=== PATIENT | male | born 1950 | race Hispanic/Latino ===

== ENCOUNTER 2024-12-07 22:59 | Emergency (ER) | payer MEDICARE ==
[~2024-12-07] VITALS: Ht 198.1 cm; Wt 99.3 kg
[2024-12-07 23:01] VITALS: BP 187/96; PULSE 101; RESP 24; TEMP 99.6
--- NOTE | 2024-12-07 23:16 | ERN ---
ED Note History of Present Illness Stated Complaint: C/O RUQ PAIN RADIATING TO BACK AND RIGHT SHOULDER Chief Complaint: Abdominal Pain Time Seen by MD: 23:09 Dictation: Mr. Olsen is a 74-year-old male who presented to the emergency room with complaints of right upper quadrant pain radiating to the back and right shoulder. All this started about 2 days ago got worse today. He describes the pain mostly in the right side of the lower chest and upper abdomen area. He reports shallow respirations and is afraid to move or take a deep breath because of the pain. He also reports cough with a small amounts of sputum which is blood-streaked. No history of any shortness of breath, fever chills rigors. He has never taken flu shot or pneumonia vaccine. He denied any nausea vomitings diarrhea hematemesis or melena. He has a history of peritonitis 25 years ago at which time he had colon resection. For the past 3 days the pain has moved from the right upper quadrant and to the back in the upper part near the scapular area. He denied carrying any heavy weights or twisting his back Temperature 99.6 pulse 101 respirations 24 blood pressure 187/96 with a pulse oximetry of 94% on room air He reports hypertension-since age 13, previous remote smoking history and drinks wine once or twice a week Past Medical History Past Medical History: Hypertension Surgical History: Tonsillectomy, Other Surgical History Other: COLON RESECTION; BILATERAL SHOULDER SX; Family History: Negative Social History: Smokers, ETOH RN Note Reviewed/Agreed w/PFSH: Yes Review of System Dictation Constitutional: Negative for fever,chills, and weight loss Eyes: Negative for injury, pain,redness, and discharge ENT: Negative for injury,pain or swelling Cardiovascular: Negative for chest pain, palpitations, and edema Respiratory: Negative for shortness of breath, cough, and wheezing, Abdomen/GI: Positive for right upper quadrant abdominal pain, nausea, vomiting, diarrhea, and constipation Back: Negative for injury and pain : Negative for injury, bleeding and discharge MS/Extremity: Negative for injury and deformity Skin: Negative for rash, and discoloration Neuro: Negative for headache, weakness, numbness, tingling, and seizure Psych: Negative for suicide ideation, homicidal ideation, and hallucinations Initial Vital Sign VS Vital Signs Date Time Temp Pulse Resp B/P (MAP) Pulse Ox O2 Delivery O2 Flow Rate FiO2 12/07/24 23:01 99.7 101 24 187/96 94 Room Air Physical Exam Dictation General: awake, alert, NAD Head/Face: Normocephalic, atraumatic Eyes: PERRL, EOMI, vision at baseline ENT: oral cavity clear, TMs clear, no signs of infection Neck: Trachea midline, supple, no nuchal rigidity Cardiovascular: RRR, normal S1/S2, No MRGs, no JVD Respiratory: CTAB, no respiratory distress, No rales or wheezes Abdomen: Soft, non-tender, non-distended, normal bowel sounds, no guarding or rebound. Skin: Warm, dry, normal turgor, no rash MS/Extremity: Pulses equal, no cyanosis, neurovascular intact, FROM Neuro: COAx4, GCS 15, strength 5/5, CN 2-12 intact, normal cerebellar exam, normal gait, Psych: Normal behavior, mood, and affect normal Extremities-trace edema without any palpable cords, Homans sign is negative Results (Laboratory/Radiology) Laboratory/Radiology Laboratory Tests Test 12/07/24 23:40 12/08/24 00:47 White Blood Count 11.3 K/uL (4.8-10.8) H Red Blood Count 5.34 MIL/uL (4.50-6.20) Hemoglobin 16.0 g/dL (14.0-18.0) Hematocrit 46.7 % (42-54) Mean Corpuscular Volume 87.5 fL (79-99) Mean Corpuscular Hemoglobin 30.0 pg (27.0-33.0) Mean Corpuscular Hemoglobin Concent 34.3 g/dL (32.0-36.0) Red Cell Distribution Width 12.1 % (11.0-15.5) Platelet Count 185 K/uL (130-400) Mean Platelet Volume 9.9 fL (7.5-10.5) Immature Granulocyte % (Auto) 0.6 % (0-1) Neutrophils (%) (Auto) 78.0 % (40.0-77.0) H Lymphocytes (%) (Auto) 10.8 % (21.0-51.0) L Monocytes (%) (Auto) 9.3 % (3.0-13.0) Eosinophils (%) (Auto) 0.9 % (0.0-8.0) Basophils (%) (Auto) 0.4 % (0.0-5.0) Neutrophils # (Auto) 8.8 K/uL (1.8-7.7) H Lymphocytes # (Auto) 1.2 K/uL (1.0-4.8) Monocytes # (Auto) 1.1 K/uL (0.1-1.0) H Eosinophils # (Auto) 0.10 K/uL (0.00-0.70) Basophils # (Auto) 0.05 K/uL (0.00-0.20) Absolute Immature Granulocyte (auto 0.07 K/uL (0-1) Nucleated Red Blood Cells 0.0 % (0.0-0.19) Sodium Level 138 mmol/L (136-145) Potassium Level 4.2 mmol/L (3.5-5.1) Chloride Level 100 mmol/L (101-111) L Carbon Dioxide Level 28 mmol/L (21-32) Blood Urea Nitrogen 10 mg/dL (7-18) Creatinine 1.0 mg/dL (0.5-1.3) Glomerular Filtration Rate Calc 80 mL/min (>90) Random Glucose 121 mg/dL (70-105) H Total Calcium 9.0 mg/dL (8.5-10.1) Total Bilirubin 0.6 mg/dL (0.2-1.0) Aspartate Amino Transf (AST/SGOT) 34 U/L (10-37) Alanine Aminotransferase (ALT/SGPT) 33 U/L (12-78) Alkaline Phosphatase 62 U/L (50-136) Total Protein 7.5 g/dL (6.0-8.3) Albumin 3.3 g/dL (3.5-5.0) L Lipase 51 U/L (16-77) Urine Color LIGHT-YELLOW (YELLOW) Urine Appearance CLEAR (CLEAR) Urine pH 5.5 (5.0-8.0) Urine Specific [place] 1.010 (1.001-1.031) Urine Protein 10 mg/dL (NEGATIVE) H Urine Glucose (UA) NEGATIVE mg/dL (NEGATIVE) Urine Ketones NEGATIVE mg/dL (NEGATIVE) Urine Occult Blood NEGATIVE (NEGATIVE) Urine Nitrate NEGATIVE (NEGATIVE) Urine Bilirubin NEGATIVE mg/dL (NEGATIVE) Urine Urobilinogen 0.2 mg/dL (0.2-1.0) Urine Leukocyte Esterase NEGATIVE [place]/uL Urine RBC 0-1 /HPF (0-1) Urine WBC 0-1 /HPF (0-1) Urine Squamous Epithelial Cells RARE /HPF (0-2) Urine Bacteria None /HPF (None Seen) Labs Reviewed?: Yes EKG Comment: EKG done on 12/07/2024 at 11:46 p.m. showed a sinus rhythm with a heart rate of 99, [place] 159 QRS 84, QT/QTC 327/421. Impression normal sinus rhythm no acute STT wave changes however nonspecific changes noted. In lead 3 small inferior cues isolated. Interpreted by ER MD Dr. Meza CT Scan Comment: PATIENT: BURTON OLSEN MR#: [id number] : 1950 SEX: M AGE: 74 LOCATION: [facility] ORDER [id number] STATUS: REG ER REPORT#: [id number] SERVICE 2343 REASON: ABD PAIN ORDERING PHYSICIAN: MARYELLEN MEZA MD PROCEDURE: ABD PEL WO - CT ABDOMEN/PELVIS W/O CONTRAST CT ABDOMEN/PELVIS W/O CONTRAST HISTORY: Abdominal pain COMPARISON: None TECHNIQUE: Multiple sequential axial images of the abdomen and pelvis were obtained from the dome of the diaphragm through symphysis pubis. Patient was not given contrast through intravenous route. Oral contrast was not given. FINDINGS: There is tiny right pleural effusion. Right basilar linear atelectasis changes are seen. There is no evidence of parenchymal disease or pulmonary nodule of the visualized lower lungs. Degenerative changes of the thoracolumbar spine are present. There is lumbar spine spondylosis. The heart is not enlarged. Gallstone is seen in the gallbladder. There may be right hepatic hemangioma versus cyst measuring 16 mm. The liver, spleen, adrenal glands and pancreas are unremarkable. There is no evidence of hydronephrosis bilaterally. There may be renal lipomatosis measuring 4 cm in the right renal pelvis. No evidence of renal stone is seen. Fecal material is seen in the colon. There are normal size retroperitoneal and mesenteric lymph nodes. No ascites is seen. Atherosclerotic changes are present. Appendix is not well seen limiting evaluation. Pelvic sidewalls are symmetric bilaterally. Bladder is well distended without wall thickening. Prostate gland is enlarged measuring 5.4 cm. There are bilateral inguinal hernias with fat content. IMPRESSION: 1. Gallstone in the gallbladder. Right hepatic hemangioma versus hepatic cysts. There may be renal lipomatosis measuring 4 cm in the right renal pelvis. CT was performed with one or more following dose reduction techniques: automated exposure control, adjustment of the mA and kv according to patient's size, or use of a iterative reconstruction technique. DICTATED BY: RAVEN RAPHAEL MD DATE: 12/08/24111 ELECTRONICALLY SIGNED BY: RAVEN RAPHAEL MD DATE: 12/08/24124 PATIENT: BURTON OLSEN MR#: [id number] : 1950 SEX: M AGE: 74 LOCATION: [facility] ORDER 44 STATUS: [facility] REPORT#: [id number] SERVICE 42 REASON: right sided pleurisy , ? early Pneumonia ORDERING PHYSICIAN: MARYELLEN MEZA MD PROCEDURE: CXR1VW - CHEST 1VW CHEST 1VW HISTORY: Right-sided pleurisy COMPARISON: None FINDINGS: A frontal projection of the chest was obtained. No acute pulmonary infiltrates is seen. The heart is borderline enlarged. Prominent interstitial markings are seen. Postop changes are seen of cervical spine. No evidence of aortic calcification is seen. IMPRESSION: 1. No acute pulmonary infiltrate is seen. DICTATED BY: RAVEN RAPHAEL MD DATE: 12/08/2435 ELECTRONICALLY SIGNED BY: RAVEN RAPHAEL MD DATE: 12/08/24111 ED Course ED Course Orders Procedure Category Date Status Time Cbc With Differential LAB 12/07/24 Complete 23:14 Comprehensive LAB 12/07/24 Complete Metabolic Panel 23:14 12 Lead Ekg Tracing- EKG 12/07/24 Complete Technical 23:14 Lipase LAB 12/07/24 Complete 23:14 Ct Abdomen/Pelvis W/O CT 12/07/24 Resulted Contrast 23:43 Chest 1vw RAD 12/07/24 Resulted 23:43 Urinalysis LAB 12/08/24 Complete W/Microscopic 00:47 Vital Signs Date Time Temp Pulse Resp B/P (MAP) Pulse Ox O2 Delivery O2 Flow Rate FiO2 12/07/24 23:01 99.7 101 24 187/96 94 Room Air We will perform diagnostic labs, advanced imaging and administer medications according to the patient's complaint. Once the results are available, will review and personally interpreted the labs to rule out any acute life- threatening emergency the trach require immediate intervention and treatment. I will then re-evaluate the patient after treatment and diagnostic exams have return to determine whether the patient requires any further testing, can safely be discharged home or need further admission to hospital for additional treatment and evaluation. 1:54 a.m.-CT scan of the abdomen and chest x-ray were reviewed there was evidence of atelectasis in the right side with a small pleural effusion suggestive of pleurisy. Evidence of cholelithiasis and also renal lipomatosis. LFTs are normal patient is afebrile however has mild leukocytosis. Recommended a short course of antibiotics and patient and spouse indicated that they have supplies of antibiotics at home. For now he could use Z-Tyler and if his abdominal pain continues or he develops nausea vomitings, he needs further evaluation for the cholelithiasis. At this current time he does not have any gallbladder wall thickening or evidence of cholecystitis. LFTs are within normal limits Medical Decision Making MDM The differential diagnosis entertained at this time includes pancreatitis, bili josafat colic, nephrolithiasis, pleurisy with bronchitis or pneumonia A full comprehensive workup will be performed to identify the underlying problem. The patient will be monitored closely throughout the emergency department stay. The disposition will depend on the workup results and frequent re-evaluations Rationale: Tests considered and ordered secondary to shared decision making include: Previous outside records reviewed: Old ER visits. Risk of complication and/or morbidity or mortality of patient management: None Medications-Per medication reconciliation Need for hospitalization: Patient does not meet criteria for hospitalization. Need for emergency major/minor surgery: No There are no social concerns with this patient. Prescription drug management Prescriptions will include symptomatic care Patient's prior external medical records from other ER visits were reviewed by me as indicated. Prior testing and results from previous visits were reviewed. Prior tests were taken into account with medical decision making and resource utilization, independent historian/historians were used to obtain complete medical history. I independently interpreted the test that were performed, results were reviewed by me and considered findings on radiology if ordered. Medical management and examination interpretation discussions were had by me with other qualified healthcare professionals as indicated for the patient's care. Problem List Problem List: (1) Pleurisy with effusion (2) Biliary colic (3) Cholelithiasis DX & DISP Disposition: Discharge Departure Impression: Primary Impression: Pleurisy with effusion Additional Impressions: Biliary colic, Cholelithiasis Condition: Stable Additional Instructions: Patient and the caregiver have been informed of all the diagnostic tests and the imaging conducted during the today's visit to the emergency room and has verbalized understanding of the results I have personally reviewed and interpreted all diagnostic exams performed here in the ER today as well as the vital signs documented by the nursing staff. The patient is now being discharged to home and should follow up with the primary care physician or the specialist as directed by the ER staff. Follow-up with primary care provider in 1 to 2 days. Take medications as directed here in the emergency room. Okay to continue home medications unless otherwise discussed during your visit in the emergency room today. Return to your nearest emergency room if symptoms worsen or if there is no improvement. Call 911 if you need immediate assistance. Take Tylenol or Motrin sarb-fed-xoebasq as needed and if no contraindications are present. Increase oral hydration. A wound culture or urine culture was ordered here in the emergency room department please follow-up with primary care provider and advise them to get repeat ports from our facility. If you had any Zhao wrap/splints that were applied here, please do not remove them until you see your primary care or specialty. Referrals: ROBERT VINES (PCP) MARYELLEN MEZA MD Dec 07, 2024 23:16
--- NOTE | 2024-12-07 23:48 | EKG ---
[facility] Test Date: 2024-12-07 Test Time: 23:46:39 Pat Name: BURTON OLSEN Department: ED Room: Gender: Funeral Driver: [facility] : 1950 Requested By: MARYELLEN CRUZ Order Number: [id number] Reading MD: Trish Mata Measurements Intervals [place] Rate: 99 P: 19 AK: 159 QRS: 34 QRSD: 84 T: 12 QT: 327 QTc: 421 Interpretive Statements Sinus rhythm No previous ECG available for comparison Electronically Signed On 12-08-2024 08:04:57 [address] MIXER OPERATOR by Trish Mata Please click the below link to view image of tracing.
[2024-12-07 23:52] LABS: BASOPHILS # (AUTO) 0.05 K/uL (0.00-0.20); BASOPHILS % (AUTO) 0.4 % (0.0-5.0); EOSINOPHILS % (AUTO) 0.9 % (0.0-8.0); HEMATOCRIT 46.7 % (42-54); IMMATURE GRANULOCYTE ABSOLUTE 0.07 K/uL (0-1); LYMPHOCYTES # (AUTO) 1.2 K/uL (1.0-4.8); LYMPHOCYTES % (AUTO) 10.8 % (21.0-51.0); MEAN CORPUSCULAR HGB CONC 34.3 g/dL (32.0-36.0); MEAN CORPUSCULAR VOLUME 87.5 fL (79-99); MONOCYTES # (AUTO) 1.1 K/uL (0.1-1.0); MONOCYTES % (AUTO) 9.3 % (3.0-13.0); NEUTROPHILS # (AUTO) 8.8 K/uL (1.8-7.7); PLATELET COUNT (AUTO) 185 K/uL (130-400); RED BLOOD CELL COUNT(AUTO) 5.34 MIL/uL (4.50-6.20); RED CELL DISTRIBUTION WIDTH 12.1 % (11.0-15.5); WHITE BLOOD COUNT (AUTO) 11.3 K/uL (4.8-10.8)
[2024-12-08 00:03] LABS: POTASSIUM 4.2 mmol/L (3.5-5.1)
[2024-12-08 00:07] LABS: ALBUMIN 3.3 g/dL (3.5-5.0); BILIRUBIN,TOTAL 0.6 mg/dL (0.2-1.0); TOTAL PROTEIN, SERUM 7.5 g/dL (6.0-8.3)
[2024-12-08 01:05] LABS: APPEARANCE,URINE CLEAR (CLEAR); BILIRUBIN,URINE NEGATIVE (NEGATIVE); COLOR,URINE LIGHT-YELLOW (YELLOW); GLUCOSE, URINE (UA) NEGATIVE (NEGATIVE); KETONES,URINE NEGATIVE (NEGATIVE); LEUKOCYTE ESTERASE ,URINE NEGATIVE Leu/uL (NEGATIVE); NITRATE,URINE NEGATIVE (NEGATIVE); OCCULT BLOOD,URINE NEGATIVE (NEGATIVE); PH,URINE 5.5 (5.0-8.0); PROTEIN,URINE 10 mg/dL (NEGATIVE); RBC,URINE 0-1 /HPF (0-1); SQUAMOUS EPITHELIAL CELL,UR RARE /HPF (0-2); UROBILINOGEN,URINE 0.2 mg/dL (0.2-1.0); WBC,URINE 0-1 /HPF (0-1)
--- NOTE | 2024-12-08 01:12 | HMCIMG ---
CHEST 1VW HISTORY: Right-sided pleurisy COMPARISON: None FINDINGS: A frontal projection of the chest was obtained. No acute pulmonary infiltrates is seen. The heart is borderline enlarged. Prominent interstitial markings are seen. Postop changes are seen of cervical spine. No evidence of aortic calcification is seen. IMPRESSION: 1. No acute pulmonary infiltrate is seen.
--- NOTE | 2024-12-08 01:25 | HMCIMG ---
CT ABDOMEN/PELVIS W/O CONTRAST HISTORY: Abdominal pain COMPARISON: None TECHNIQUE: Multiple sequential axial images of the abdomen and pelvis were obtained from the dome of the diaphragm through symphysis pubis. Patient was not given contrast through intravenous route. Oral contrast was not given. FINDINGS: There is tiny right pleural effusion. Right basilar linear atelectasis changes are seen. There is no evidence of parenchymal disease or pulmonary nodule of the visualized lower lungs. Degenerative changes of the thoracolumbar spine are present. There is lumbar spine spondylosis. The heart is not enlarged. Gallstone is seen in the gallbladder. There may be right hepatic hemangioma versus cyst measuring 16 mm. The liver, spleen, adrenal glands and pancreas are unremarkable. There is no evidence of hydronephrosis bilaterally. There may be renal lipomatosis measuring 4 cm in the right renal pelvis. No evidence of renal stone is seen. Fecal material is seen in the colon. There are normal size retroperitoneal and mesenteric lymph nodes. No ascites is seen. Atherosclerotic changes are present. Appendix is not well seen limiting evaluation. Pelvic sidewalls are symmetric bilaterally. Bladder is well distended without wall thickening. Prostate gland is enlarged measuring 5.4 cm. There are bilateral inguinal hernias with fat content. IMPRESSION: 1. Gallstone in the gallbladder. Right hepatic hemangioma versus hepatic cysts. There may be renal lipomatosis measuring 4 cm in the right renal pelvis. CT was performed with one or more following dose reduction techniques: automated exposure control, adjustment of the mA and kv according to patient's size, or use of a iterative reconstruction technique.
== END 2024-12-08 02:05 | disposition home or self-care (01) ==
LOC: EDH 22:59
DX: J90 Pleural effusion, not elsewhere classified (principal); K80.50 Calculus of bile duct without cholangitis or cholecystitis without obstruction; K80.20 Calculus of gallbladder without cholecystitis without obstruction; I10 Essential (primary) hypertension; F17.200 Nicotine dependence, unspecified, uncomplicated; Z90.89 Acquired absence of other organs
CPT/HCPCS: 36415; 71045; 74176; 80053; 81001; 83690; 85025; 93005; 99285